=== PATIENT | female | born 1980 | race Caucasian/White ===

== ENCOUNTER 2019-09-13 16:33 | Emergency (ER) | payer MEDICAID ==
[~2019-09-13] VITALS: Ht 149.9 cm; Wt 72.1 kg
[~2019-09-13 16:33] MED LIST: ACET-8386 PO; DOCU-300 PO; ONDA4TAB PO
[2019-09-13 16:36] VITALS: BP 135/80
--- NOTE | 2019-09-13 16:56 | NUR ---
TO ED 03
--- NOTE | 2019-09-13 16:59 | NUR ---
38/F BIB FAMILY C/O LEFT FLANK PAIN X 3 DAYS. 16 WKS . PATIENT STATES PAIN OF 7/10 AT THIS TIME. PATIENT POSITIONED FOR COMFORT; HOB ELEVATED; BEDRAILS UP X1; BED DOWN. ER MD MADE AWARE OF PT STATUS.
[2019-09-13] MEDS: ACETAMINOPHEN EXTRA STRENGTH 500 MG TAB PO ONE (18:07)
--- NOTE | 2019-09-13 18:09 | NUR ---
LAB AT BEDSIDE.
[2019-09-13 18:32] LABS: BASOPHILS % (AUTO) 0.3 % (0.0-2.0); EOSINOPHILS # (AUTO) 0.1 K/uL (0-0.4); HEMATOCRIT 40.2 % (36-48); HEMOGLOBIN 13.3 g/dL (12.0-16.0); LYMPHOCYTES # (AUTO) 2.7 K/uL (2.5-16.5); LYMPHOCYTES % (AUTO) 32.1 % (20.5-51.1); MEAN CORPUSCULAR HEMOGLOBIN 30 pg (27-31); MEAN CORPUSCULAR HGB CONC 33 g/dL (33-37); MEAN CORPUSCULAR VOLUME 90.4 fL (80-94); MONOCYTES # (AUTO) 0.6 K/uL (0.8-1.0); MONOCYTES % (AUTO) 7.4 % (1.7-9.3); NEUTROPHILS # (AUTO) 4.9 K/uL (1.8-7.7); NEUTROPHILS % (AUTO) 59.2 % (42.2-75.2); PLATELET COUNT (AUTO) 297 K/uL (140-450); RED BLOOD CELL COUNT(AUTO) 4.44 MIL/uL (4.20-5.40); RED CELL DISTRIBUTION WIDTH 13.6 % (11.6-13.7); WHITE BLOOD COUNT (AUTO) 8.3 K/uL (4.8-10.8)
[2019-09-13 18:37] LABS: APPEARANCE,URINE CLOUDY (CLEAR); BILIRUBIN,URINE NEGATIVE (NEGATIVE); BLOOD, URINE NEGATIVE (NEGATIVE); COLOR,URINE DARK YELLOW (YELLOW); LEUKOCYTE ESTERASE ,URINE 3+ (NEGATIVE); NITRITE, URINE NEGATIVE (NEGATIVE); UGLUCOSE NEGATIVE (NEGATIVE)
[2019-09-13 18:53] LABS: ANION GAP 12.5 (8-16); CREATININE 0.4 mg/dL (0.6-1.3); POTASSIUM 3.5 mmol/L (3.5-5.1); TOTAL BILIRUBIN 0.2 mg/dL (0.0-1.0)
--- NOTE | 2019-09-13 19:09 | NUR ---
Pt report given to AIDAN RAHMAN. Transfer of care at this time.
[2019-09-13 19:46] LABS: RBC,URINE 0-5 /HPF (0-5)
[2019-09-13 20:30] VITALS: BP 112/73
--- NOTE | 2019-09-13 20:30 | NUR ---
Patient discharged with v/s stable. Written and verbal after care instructions about urinary tract infections given and explained in french. Patient verbalized understanding. Ambulatory with steady gait. All questions addressed prior to discharge. Advised to follow up with PMD.
== END 2019-09-13 20:30 | disposition home or self-care (01) ==
LOC: MED 16:33
DX: O23.41 Unspecified infection of urinary tract in pregnancy, first trimester (principal); O26.91 Pregnancy related conditions, unspecified, first trimester; M54.5 Low back pain; Z79.899 Other long term (current) drug therapy; Z88.6 Allergy status to analgesic agent
CPT/HCPCS: 36415; 76770; 80053; 81001; 81025; 83690; 84702; 85025; 86900; 86901; 87086; 99284; Q0092

== ENCOUNTER 2022-07-09 12:34 | Emergency (ER) | payer MEDICAID ==
[~2022-07-09] VITALS: Ht 143.8 cm; Wt 82.3 kg
[2022-07-09 12:49] VITALS: BP 121/78
--- NOTE | 2022-07-09 12:56 | NUR ---
PT AMB TO BED 3.
[2022-07-09] MEDS ORDERED: KETOROLAC 30 MG/ML VIAL IM ONE (13:05)
--- NOTE | 2022-07-09 13:27 | NUR ---
UA SENT TO LAB
--- NOTE | 2022-07-09 13:45 | NUR ---
PATIENT PRESENTS TO ED WITH LOWER ABDOMINAL PAIN . PATIENT REPORTS N/V AND DENIES DIARRHEA; SKIN IS PINK/WARM/DRY; AAOX4 WITH EVEN AND STEADY GAIT; LUNGS CLEAR BL; HR EVEN AND REGULAR; PT DENIES ANY FEVER, CP, SOB, OR COUGH AT THIS TIME; PATIENT STATES PAIN OF 0/10 AT THIS TIME; VSS; PATIENT POSITIONED FOR COMFORT; HOB ELEVATED; BEDRAILS UP X2; BED DOWN. ER MD MADE AWARE OF PT STATUS.
[2022-07-09] MEDS ORDERED: ONDA-188 PO (14:04)
[2022-07-09] MEDS ORDERED: CEPH-588 PO (14:04)
[2022-07-09] MEDS ORDERED: KETOROLAC 30 MG/ML VIAL ONE (14:36)
[2022-07-09 15:41] LABS: APPEARANCE,URINE CLEAR (CLEAR); BILIRUBIN,URINE NEGATIVE (NEGATIVE); BLOOD, URINE 3+ (NEGATIVE); COLOR,URINE YELLOW (YELLOW); LEUKOCYTE ESTERASE ,URINE NEGATIVE (NEGATIVE); NITRITE, URINE NEGATIVE (NEGATIVE); UGLUCOSE NEGATIVE (NEGATIVE)
--- NOTE | 2022-07-09 16:00 | NUR ---
Patient appears to be resting comfortably in bed. Vital Signs within normal limits. Respirations even and unlabored.
[2022-07-09 16:18] LABS: RBC,URINE TOO NUMEROUS TO COUN /HPF (0-5); WBC,URINE NONE SEEN /HPF (0-5)
[2022-07-09 17:00] VITALS: BP 133/76
== END 2022-07-09 16:59 | disposition home or self-care (01) ==
LOC: MED 12:34
DX: N39.0 Urinary tract infection, site not specified (principal); Z88.6 Allergy status to analgesic agent; Z79.899 Other long term (current) drug therapy; Z90.49 Acquired absence of other specified parts of digestive tract
CPT/HCPCS: 81001; 81025; 87086; 96372; 99283; J1885